=== PATIENT | male | born 1970 | race African-American/Black ===

== ENCOUNTER 2021-11-27 09:04 | Emergency (ER) | payer SELFPAY ==
[~2021-11-27] VITALS: Ht 175.3 cm; Wt 141.0 kg
[2021-11-27 09:08] VITALS: BP 139/92
[2021-11-27] MEDS ORDERED: LEVETIRACETAM 1000MG PREMIX 100 ML IV ONE (09:30)
[2021-11-27 10:32] LABS: BASOPHILS % 0.7 % (0.0-2.0); EOSINOPHILS % 1.9 % (0.0-5.0); HEMATOCRIT. 41.9 % (42.0-52.0); HEMOGLOBIN. 13.8 g/dL (14.0-18.0); LYMPHOCYTES % 24.3 % (20.0-50.0); MEAN CORPUSCULAR HEMOGLOBIN 25.4 pg (28.0-32.0); MEAN PLATELET VOLUME 7.9 fl (7.4-10.4); MONOCYTES % 7.3 % (2.0-8.0); NEUTROPHILS % 65.8 % (40.0-76.0); PLATELET 299 x1000/uL (130-400); RED BLOOD CELL COUNT 5.44 mill/uL (4.7-6.1); RED CELL DISTRIBUTION WIDTH 14.1 % (11.6-14.6)
[2021-11-27 10:39] LABS: CHLORIDE 97 mEq/L (98-107)
[2021-11-27 10:44] LABS: ETHANOL BLOOD < 10 mg/dL
== END 2021-11-27 11:10 | disposition home or self-care (01) ==
LOC: ER 09:04
DX: G40.909 Epilepsy, unspecified, not intractable, without status epilepticus (principal); Z91.14 Patient's other noncompliance with medication regimen
CPT/HCPCS: 36415; 80053; 80320; 85025; 99283; G0480

== ENCOUNTER 2023-02-06 10:08 | Emergency (ER) | payer OTHER ==
[~2023-02-06] VITALS: Ht 177.8 cm; Wt 90.0 kg
[2023-02-06] MEDS ORDERED: LEVETIRACETAM 500MG PREMIX 100 ML IV ONE (10:30)
[2023-02-06] MEDS ORDERED: SODIUM CHLORIDE 0.9% 1,000 ML IV ONE (10:30)
[2023-02-06 11:25] LABS: BASOPHILS % 0.3 % (0.0-2.0); EOSINOPHILS % 2.1 % (0.0-5.0); HEMATOCRIT. 41.7 % (42.0-52.0); HEMOGLOBIN. 13.6 g/dL (14.0-18.0); LYMPHOCYTES % 29.6 % (20.0-50.0); MEAN CORPUSCULAR VOLUME 79.7 fL (80.0-94.0); MEAN PLATELET VOLUME 7.4 fl (7.4-10.4); PLATELET 253 x1000/uL (130-400); RED BLOOD CELL COUNT 5.24 mill/uL (4.7-6.1); RED CELL DISTRIBUTION WIDTH 14.9 % (11.6-14.6)
[2023-02-06 11:30] LABS: CHLORIDE 108 mEq/L (98-107)
[2023-02-06] MEDS ORDERED: ASPIRIN 325MG EC TABLET PO ONE (12:00)
[2023-02-06 12:30] VITALS: BP 125/89
== END 2023-02-06 12:01 | disposition left against medical advice (07) ==
LOC: ER 10:08 → CANBEDREQ 02-08 11:04
DX: R55 Syncope and collapse (principal); G40.909 Epilepsy, unspecified, not intractable, without status epilepticus; D64.9 Anemia, unspecified; R47.81 Slurred speech
CPT/HCPCS: 36415; 70450; 71045; 80053; 82962; 83880; 84484; 85025; 93005; 96365; 99285; J1953; J7030